=== PATIENT | male | born 1995 | race Caucasian/White ===

== ENCOUNTER 2018-04-21 16:51 | Emergency (ER) | payer BC ==
[~2018-04-21] VITALS: Ht 170.2 cm; Wt 72.6 kg
--- NOTE | 2018-04-21 17:36 | PHYS DOC ---
Past History Past Medical History: No Pertinent History Past Surgical History: No Surgical History Alcohol Use: Occasionally Drug Use: Marijuana Adult General Chief Complaint Chief Complaint: COUGH HPI HPI Patient is a 23-year-old male who presents for evaluation after he noticed that he has been coughing up a small blood. He does smoke cigarettes. He denies any other complaints and specifically denies shortness of breath, chest pain, lower extremity pain or swelling, history of DVT or PE, weight loss or night sweats. He is alert and oriented 4, calm, appears to be in no distress this time. I did advise the patient at this time to stop smoking cigarettes. He denies any significant past medical history and takes no prescribed medications. Review of Systems Review of Systems Constitutional: Denies fever or chills [] Eyes: Denies change in visual acuity, redness, or eye pain [] HENT: Denies nasal congestion or sore throat [] Respiratory: [] +cough, some blood-tinged sputum Cardiovascular: No additional information not addressed in HPI [] GI: Denies abdominal pain, nausea, vomiting, bloody stools or diarrhea [] : Denies dysuria or hematuria [] Musculoskeletal: Denies back pain or joint pain [] Integument: Denies rash or skin lesions [] Neurologic: Denies headache, focal weakness or sensory changes [] Endocrine: Denies polyuria or polydipsia [] All other systems were reviewed and found to be within normal limits, except as documented in this note. Allergies Allergies Allergies Coded Allergies Type Severity Reaction Last Updated Verified No Known Drug Allergies 04/21/18 No Physical Exam Physical Exam Constitutional: Well developed, well nourished, no acute distress, non-toxic appearance. [] HENT: Normocephalic, atraumatic, bilateral external ears normal, oropharynx moist, no oral exudates, nose normal. [] Eyes: PERRLA, EOMI, conjunctiva normal, no discharge. [] Neck: Normal range of motion, no tenderness, supple, no stridor. [] Cardiovascular:Heart rate regular rhythm, no murmur [] Lungs & Thorax: Bilateral breath sounds clear to auscultation [] Abdomen: Bowel sounds normal, soft, no tenderness, no masses, no pulsatile masses. [] Skin: Warm, dry, no erythema, no rash. [] Back: No tenderness, no CVA tenderness. [] Extremities: No tenderness, no cyanosis, no clubbing, ROM intact, no edema. [] Neurologic: Alert and oriented X 3, normal motor function, normal sensory function, no focal deficits noted. [] Psychologic: Affect normal, judgement normal, mood normal. [] Current Patient Data Vital Signs Vital Signs Date Time Temp Pulse Resp B/P (MAP) Pulse Ox O2 Delivery O2 Flow Rate FiO2 04/21/18 17:03 98.1 66 18 99 Room Air EKG EKG [] Radiology/Procedures Radiology/Procedures [address] [address] IMAGING REPORT Signed PATIENT: ALLISON SANCHEZ ACCOUNT: [id number] : 1995 LOCATION: ER AGE: 23 SEX: M EXAM STATUS: REG ER ORD. PHYSICIAN: NEDRA DARNELL DO REASON: hemoptysis, cough PROCEDURE: CHEST PA & LATERAL PA and lateral chest radiographs 04/21/2018 Clinical History: Hemoptysis, congestion and cough. Two PA and a lateral digital radiographs of the chest were obtained. No previous studies are available for comparison. The cardiac and mediastinal silhouettes are within normal limits in size and configuration. No pulmonary infiltrate is seen. No pleural effusion or pneumothorax is noted. The osseous structures are grossly intact. Impression: No radiographic evidence of active cardiopulmonary disease. Electronically signed by: Medardo Marsh MD (04/21/2018 5:52 PM) [facility] DICTATED AND SIGNED BY: MEDARDO MARSH MD DATE: 04/21/18 175 CC: NEDRA DARNELL DO; SOPHIA VASQUEZ ~ Course & Med Decision Making Course & Med Decision Making Pertinent Labs and Imaging studies reviewed. (See chart for details) @1755 - Patient updated on imaging results. Again advised patient to stop smoking. He'll go home with a prescription for prednisone. Dragon Disclaimer Dragon Disclaimer This electronic medical record was generated, in whole or in part, using a voice recognition dictation system. Departure Departure: Impression: Primary Impression: Cough with hemoptysis Additional Impression: Tobacco abuse Disposition: HOME, SELF-CARE Condition: STABLE Referrals: SOPHIA VASQUEZ (PCP) Patient Instructions: Acute Bronchitis, Hemoptysis, Smoking Cessation, Smoking Hazards, Smoking, You Can Quit, [id number] Additional Instructions: Patient needs to follow-up with his PCP in 2-3 days. Advised patient he needs to return to the hospital immediately if he is having new or worsening symptoms or coughs up mandy blood. Take the prescribed prednisone as directed. Scripts Prednisone (PREDNISONE) 20 Mg Tablet 2 TAB PO DAILY, #5 TAB Prov: NEDRA DARNELL DO 04/21/18 Problem Qualifiers NEDRA DARNELL DO Apr 21, 2018 17:35
[2018-04-21 17:43] VITALS: BP 145/86
--- NOTE | 2018-04-21 17:56 | RAD ---
PA and lateral chest radiographs 04/21/2018 Clinical History: Hemoptysis, congestion and cough. Two PA and a lateral digital radiographs of the chest were obtained. No previous studies are available for comparison. The cardiac and mediastinal silhouettes are within normal limits in size and configuration. No pulmonary infiltrate is seen. No pleural effusion or pneumothorax is noted. The osseous structures are grossly intact. Impression: No radiographic evidence of active cardiopulmonary disease. Electronically signed by: Medardo Marsh MD (04/21/2018 5:52 PM) [facility]
[2018-04-21] MEDS ORDERED: PRED20TA PO (18:02)
== END 2018-04-21 18:08 | disposition home or self-care (01) ==
LOC: ER 16:51
DX: R04.2 Hemoptysis (principal); Z72.0 Tobacco use
CPT/HCPCS: 71046; 99284

== ENCOUNTER 2021-11-07 15:39 | Emergency (ER) | payer BC ==
[~2021-11-07] VITALS: Ht 170.2 cm; Wt 68.2 kg
[~2021-11-07 15:39] MED LIST: PRED20TA PO
[2021-11-07] MEDS ORDERED: LIDOCAINE 1% Multi-Dose 20 ML VIAL. IJ ONE (17:00)
[2021-11-07] MEDS ORDERED: DIPHTH,PERTUSS(ACELL),TET TOX 0.5 ML DISP.SYRIN. VAX IM ONE (17:00)
[2021-11-07] MEDS ORDERED: ACETAMINOPHEN 500 MG TABLET PO ONE (18:00)
[2021-11-07 19:09] VITALS: BP 134/68
--- NOTE | 2021-11-07 19:11 | PHYS DOC ---
Past History Past Medical History: No Pertinent History (LINDA AUGUST) Past Surgical History: No Surgical History (LINDA AUGUST) Alcohol Use: Occasionally Drug Use: Marijuana (LINDA AUGUST) General Adult EDM: Chief Complaint: LACERATION/AVULSION HPI: HPI: Patient is a 26 year old male who presents with laceration to his left hand. 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 Patient reports significant amount of bleeding at the time of drain. He immediately got a towel and wrapped the wound. Patient reports some associated paresthesias to the distal end of digit 2. Tetanus vaccination is not up-to-date. He has no other injuries or complaints at this time. (LINDA AUGUST) Review of Systems: Review of Systems: ROS negative or noncontributory except as mentioned in HPI. (LINDA AUGUST) Current Medications: Current Meds: Current Medications Medications (Trade) Dose Ordered Sig/Prasanna Start Time Stop Time Status Last Admin Dose Admin Acetaminophen (Tylenol) 1,000 mg 1X ONCE 11/07/21 18:00 11/07/21 18:01 DC 11/07/21 18:00 1,000 MG Diphtheria/ Tetanus/Acell Pertussis (Boostrix) 0.5 ml ONCE ONCE 11/07/21 17:00 11/07/21 17:18 DC 11/07/21 17:47 0.5 ML Lidocaine HCl 20 ml 1X ONCE 11/07/21 17:00 11/07/21 17:18 DC 11/07/21 18:56 20 ML (LINDA AUGUST) Allergies: Allergies: Allergies Coded Allergies Type Severity Reaction Last Updated Verified No Known Drug Allergies 11/07/21 No (LINDA AUGUST) Physical Exam: PE: Constitutional: Well developed, well nourished, no acute distress, non-toxic appearance. Cardiovascular: Heart rate regular rhythm, no murmur. Lungs & Thorax: Bilateral breath sounds clear to auscultation. Skin: Wide 3 cm x 3 cm V-shaped laceration to the lateral aspect of the left hand on the palmar side between digits 1 and 2. Skin otherwise warm, dry, no erythema, no rash. Extremities: No tenderness, no cyanosis, no clubbing, ROM intact, no edema. (LINDA AUGUST) Current Patient Data: Vital Signs: Vital Signs Date Time Temp Pulse Resp B/P (MAP) Pulse Ox O2 Delivery O2 Flow Rate FiO2 11/07/21 19:09 76 18 134/68 (90) 96 11/07/21 16:30 99.7 99 16 146/88 (107) 98 (LINDA AUGUST) Heart Score: C/O Chest Pain: No (LINDA AUGUST) Course & Med Decision Making: Course & Med Decision Making Pertinent Labs and Imaging studies reviewed. (See chart for details) Patient is a 26-year-old male who presents with an isolated injury to his left hand. Patient cut his hand with a icebox worker. Tetanus will be updated in the d epartment. Wound will be closed with sutures. See laceration closure procedure note as noted below. Patient tolerated procedu re well. He is given return precautions and wound care instructions. Patient understands and is agreeable to discharge plan (LINDA AUGUST) Dragon Disclaimer: Dragon Disclaimer: This electronic medical record was generated, in whole or in part, using a voice recognition dictation system. (LINDA AUGUST) Laceration Repair Lac Repair Indication: Laceration to lateral aspect of left palm Procedure: The patient was placed in the appropriate position and anesthesia around the laceration 4 cc 1% lidocaine plain. The area was then irrigated with 800 cc sterile saline and cleansed with Betadine solution. The laceration was closed with 8 simple interrupted 5-0 nylon sutures. The wound area was then dressed with Xeroform and gauze. Total repaired wound length: 7-8 cm. Other Items: The patient tolerated the procedure very well. Complications: No complications. (LINDA AUGUST) Departure Departure: Impression: Primary Impression: Laceration of left palm without complication Qualified Codes: S61.412A - Laceration without foreign body of left hand, initial encounter Disposition: HOME / SELF CARE / HOMELESS Condition: STABLE Referrals: SOPHIA VASQUEZ (PCP) Patient Instructions: Sutured Wound Care, [id number] Additional Instructions: EMERGENCY DEPARTMENT GENERAL DISCHARGE INSTRUCTIONS Thank you for coming to [facility] (ED) today and trusting us with you care. We trust that you had a positive experience in our Emergency Department. If you wish to speak to the department management, you may call the director at [phone]. YOUR FOLLOW UP INSTRUCTIONS ARE FOLLOWS: 1. Do you have a private Doctor? If you do not have a private doctor, please ask for a resource list of physicians or clinics that may be able to assist you with follow up care. 2. The Emergency Physician has interpreted your x-rays. The X-Ray specialist will also review them. If there is a change in the findings, you will be notified in 48 hours when at all possible. 3. A lab test or culture has been done, your results will be reviewed and you will be notified if you need a change in treatment. ADDITIONAL INSTRUCTIONS AND INFORMATION: 1. Your care today has been supervised by a physician who is specially trained in emergency care. Many problems require more than one evaluation for a complete diagnosis and treatment. We recommend that you schedule your follow up appointment as recommended to ensure complete treatment of you illness or injury. If you are unable to obtain follow up care and continue to have a problem, or if your condition worsens, we recommend that you return to the ED. 2. We are not able to safely determine your condition over the phone nor are we able to give sound medical advice over the phone. For these safety reasons, if you call for medical advice we will ask you to come to the ED for further evaluation. 3. If you have any questions regarding these discharge instructions please call the ED at [phone]. SAFETY INFORMATION: In the interest of safety, wellness, and injury prevention; we encourage you to wear your seat belt, if you smoke; quite smoking, and we encourage family to use a protective helmet for bicycling and other sporting events that present an increased risk for head injury. IF YOUR SYMPTOMS WORSEN OR NEW SYMPTOMS DEVELOP, OR YOU HAVE CONCERNS ABOUT YOUR CONDITION; OR IF YOUR CONDITION WORSENS WHILE YOU ARE WAITING FOR YOUR FOLLOW UP APPOINTMENT; EITHER CONTACT YOUR PRIMARY CARE DOCTOR, THE PHYSICIAN WHOSE NAME AND NUMBER YOU WERE GIVEN, OR RETURN TO THE ED IMMEDIATELY. Attending Signature Attending Signature I have participated in the care of this patient and I have reviewed and agree with all pertinent clinical information above including history, exam, and recommendations. (LILY JOYNER MD) LINDA AUGUST Nov 07, 2021 19:11 LILY JOYNER MD Nov 08, 2021 18:35
== END 2021-11-07 19:12 | disposition home or self-care (01) ==
LOC: ER 15:39
DX: S61.412A Laceration without foreign body of left hand, initial encounter (principal); W27.8XXA Contact with other nonpowered hand tool, initial encounter; Y93.89 Activity, other specified; Y92.89 Other specified places as the place of occurrence of the external cause; Y99.8 Other external cause status
CPT/HCPCS: 12002; 90471; 90715; 99283